=== PATIENT | female | born 1995 | race Caucasian/White ===

== ENCOUNTER 2017-02-07 13:35 | Emergency (ER) | payer OTHER ==
[~2017-02-07] VITALS: Ht 167.6 cm; Wt 58.1 kg
[2017-02-07 13:42] VITALS: TEMP 36.8; Ht 167.6 cm; Wt 58.1 kg
[2017-02-07] MEDS ORDERED: ACETAMINOPHEN 500 MG TAB PO STA (14:17)
[2017-02-07] MEDS ORDERED: TRAM-10 PO (14:21)
[2017-02-07] MEDS ORDERED: ONDA4TAB10 SL (14:21)
[2017-02-07] MEDS ORDERED: BCPILLS PO (14:24)
[2017-02-07] MEDS ORDERED: ONDANSETRON 4MG OD TAB PO ONE (14:30)
[2017-02-07 14:33] VITALS: BP 114/70; PULSE 86; O2SAT 99
--- NOTE | 2017-02-07 16:00 | EMERGENCY ROOM VISIT NOTE ---
History First contact with patient: 13:48 Chief Complaint: HEAD INJURY (MINOR) Stated Complaint: DELGADO, NAUSEA, VOMITING History of Present Illness The patient is a 21 year old female who presents to the Emergency Room with complaints of a headache, nausea, vomiting, drowsiness and difficulty concentrating after sustaining a head injury late last night. The patient reports that she left the [facility] with her boyfriend. When she tried to jump onto his back for a piggyback ride, she fell backward, striking her head on the ground. She denies any loss of consciousness. The patient reports that when she awakened this morning, she had a headache with nausea and one episode of vomiting. She did not know if her symptoms were secondary to alcohol intoxication or a concussion. The patient admits that she has had some improvement of her headache throughout the day. She denies any significant neck or back pain. The patient denies any prior history of concussion. She currently rates her headache a 5 out of 10 with mild nausea. Review of Systems 10 system review was performed and was negative except for pertinent positives and negatives as indicated in history of present illness Past Medical/Surgical History Medical Problems: (1) No significant past medical history Surgical Problems: (1) No history of previous surgery Family History Unremarkable Social History Smoking Status: Never Smoker Alcohol Use: occasionally Marital Status: single Occupation Status: [employer] student Current/Historical Medications Scheduled Control Pills ( Control Pills), 1 TAB PO DAILY Ondasetron Odt (Zofran Odt), 4 MG SL Q6H Scheduled PRN Tramadol (Ultram), 1-2 TAB PO Q4H PRN for Pain Allergies Coded Allergies: Amoxicillin (Unverified Adverse Reaction, Intermediate, RASH, 02/07/17) Physical Exam Vital Signs Date Time Temp Pulse Resp B/P Pulse Ox O2 Delivery O2 Flow Rate FiO2 02/07/17 14:33 86 16 114/70 99 02/07/17 13:42 36.8 115 20 116/73 99 Room Air Pain Rating (0-10): 4.0 Physical Exam CONSTITUTIONAL: Healthy and well nourished. Alert and oriented X 3 with positive affect. GCS 15. HEENT: Examination shows mild occipital edema. No lacerations noted. Pupils equal, round and reactive. No subconjunctival hemorrhage, epistaxis, hemotympanum, raccoon's eyes or Conway sign. NECK: Full active range of motion without discomfort. OROPHARYNX: No dental trauma or other intraoral lesions noted. RESPIRATORY: Clear to auscultation bilaterally with no wheezing, crackles, rhonchi or stridor. CARDIOVASCULAR: Regular rate and rhythm with no murmurs, rubs or gallops. GASTROINTESTINAL: Bowel sounds present in all quadrants. Soft and nontender to palpation. MUSCULOSKELETAL: Examination shows no significant tenderness to palpation through the posterior ribs, thoracolumbar spine or scapulae. She has no tenderness to palpation through the anterior ribs. She has full range of motion of the shoulders without discomfort. Distal pulses are intact. INTEGUMENTARY: No rash or other significant dermatologic conditions noted. NEUROLOGIC: No focal neurologic deficits noted. Normal finger to nose test. Negative pronator drift. Normal fast alternating hand movements. No ataxia with ambulation. Medical Decision & Procedures Medications Administered Medications (Trade) Dose Ordered Sig/Diana Route Start Time Stop Time Status Last Admin Dose Admin Acetaminophen (Tylenol Tab) 1,000 mg NOW STAT PO 02/07/17 14:17 02/07/17 14:18 DC 02/07/17 14:25 1,000 MG Ondansetron HCl (Zofran Odt) 4 mg ONE ONCE PO 02/07/17 14:30 02/07/17 14:31 DC 02/07/17 14:25 4 MG ED Course Patient history and physical exam were performed. Nurse's notes were reviewed. Vital signs were reviewed and were normal. I did discuss typical workup for migraines. The patient was advised that her neurologic exam is normal. I also discussed utilization of CT studies to evaluate for skull fracture or intracranial bleed. Because the patient's symptoms have been improving today, I suggested conservative management and return for any worsening symptoms. The patient was offered a CT with a discussion of risks of radiation. Based on our conversation, the patient elected conservative management. She was instructed to refrain from NSAIDs and aspirin for now. She was instructed to take Tylenol as needed for baseline pain relief. She was administered Tylenol 1 g and Zofran 4 mg ODT in the emergency department, and provided prescriptions for Zofran ODT and Ultram as needed for breakthrough pain. The patient was instructed to return to the emergency department for any progressively worsening symptoms, otherwise follow-up with [facility] as needed for further concussion management. The patient was happy with plan of care, voiced understanding of all discharge instructions, and rated her pain a 4 out of 10 at the time of discharge. Medical Decision Impression Primary Impression: Concussion Departure Information Dispostion Home / Self-Care Condition GOOD Prescriptions Ondasetron Odt (ZOFRAN ODT) 4 Mg Tab 4 MG SL Q6H for Nausea, #10 TAB Prov: Brandan Martinez PA 02/07/17 Tramadol (Ultram) 50 Mg Tab 1-2 TAB PO Q4H Y for Pain, #20 TAB For Initial Treatment Prov: Brandan Martinez PA 02/07/17 Forms HOME CARE DOCUMENTATION FORM, IMPORTANT VISIT INFORMATION Patient Instructions [facility], ED Concussion Additional Instructions Read concussion handout. Avoid strenuous activities until all symptoms resolve. Avoid Motrin/ibuprofen/Advil/Aleve/naproxen and aspirin. Take Tylenol 1000 mg every 6-8 hours for baseline pain relief. Ultram if needed for additional pain. Zofran ODT as needed for nausea. Return to the emergency department for progressively worsening symptoms. Follow-up with [facility] as needed for further concussion management. Problem Qualifiers Primary Impression: Concussion Encounter type: initial encounter Loss of consciousness presence/duration: without LOC Qualified Codes: S06.0X0A - Concussion without loss of consciousness, initial encounter
== END 2017-02-07 14:35 | disposition home or self-care (01) ==
LOC: C.EDB 13:37 → C.EDD 14:35
DX: S06.0X0A Concussion without loss of consciousness, initial encounter (principal); W18.00XA Striking against unspecified object with subsequent fall, initial encounter